=== PATIENT | female | born 1930 | race Native Hawaiian/Other Pacific Islander ===

== ENCOUNTER 2016-10-21 10:28 | Emergency (ER) | payer MEDICARE ==
[2016-10-21 10:28] VITALS: BMI 23.6
[2016-10-21 10:39] VITALS: BP 119/39; PULSE 82; RESP 20; TEMP 98.5; O2SAT 100
--- NOTE | 2016-10-21 11:41 | ED PDOC ---
HPI: General Adult Time Seen by Provider: 10/21/16 11:36 Chief Complaint (Nursing): Lower Extremity Problem/Injury Chief Complaint (Provider): left knee pain History Per: Patient History/Exam Limitations: no limitations Additional Complaint(s): 86yo female comes for evaluation of increased left knee pain for 4 days. Patient reports that 4 days ago she noticed increased pain and swelling to her knee. She denies trauma other than walking excessively to the store. Denies any falls, trauma or twisting injuries. She reports over the last 4 days the swelling has resolved but she still has pain. When pressed she reports that she has had similar pain in her L knee since her knee replacement in 2015. Patient states she had left knee replacement by Dr. Mcneal in February 2016 and has had persistent pain since then. She reports that she has spoken to her orthopedist multiple times since then and was told it was normal post-operative pain and chronic. Reports she's been following with him monthly. Her next appointment with him is next week however she did not want to wait and reports that his office is in an inconvenient location and is expensive to get transportation to, so she chose to come to the ED for evaluation. Denies fever, chills, break in skin or other injury. Past Medical History Reviewed: Historical Data, Nursing Documentation, Vital Signs Vital Signs: Last Vital Signs Temp 98.5 F 10/21/16 10:36 Pulse 82 10/21/16 10:36 Resp 20 10/21/16 10:36 BP 119/39 L 10/21/16 10:36 Pulse Ox 100 10/21/16 13:06 - Medical History PMH: Arthritis, Cardia Arrhythmia, Depression, Fractures (right hip), HTN, Hypercholesterolemia, Osteoporosis Denies: Atrial Fibrillation, Chronic Kidney Disease - Surgical History Surgical History: Endoscopy, Pacemaker - Family History Family History: States: Unknown Family Hx - Living Arrangements Living Arrangements: With Family - Social History Drugs: Denies - Immunization History Hx Tetanus Toxoid Vaccination: No Hx Influenza Vaccination: Yes Hx Pneumococcal Vaccination: No - Home Medications Home Medications: Ambulatory Orders Medication Instructions Recorded Simvastatin 40 mg PO DAILY 02/03/14 Losartan [Cozaar] 50 mg PO DAILY #0 tab 02/05/14 Amlodipine Besylate 5 mg PO DAILY 05/12/14 Gabapentin [Neurontin] 100 mg PO TID 11/10/14 Acetaminophen [Tylenol 325mg tab] 650 mg PO Q4 PRN #0 tab 11/22/14 Dabigatran [Pradaxa] 75 mg PO 02/15/16 Sotalol [Betapace] 40 mg PO BID 02/15/16 Acetaminophen [Tylenol 325mg tab] 650 mg PO Q4 PRN #0 tab 02/24/16 Dabigatran [Pradaxa] 75 mg PO DAILY #0 cap 02/24/16 Docusate [Colace] 100 mg PO BID #0 cap 02/24/16 Ferrous Sulfate 325 mg PO BID #0 tab 02/24/16 Gabapentin [Neurontin] 100 mg PO TID #0 cap 02/24/16 Losartan [Cozaar] 50 mg PO DAILY #0 tab 02/24/16 Multivit,Iron,Min 5/Folic Acid 1 tab PO DAILY #0 tablet 02/24/16 [Strovite Forte Caplet] Sotalol HCl [Betapace] 40 mg PO DAILY #0 tablet 02/24/16 amLODIPine [Norvasc] 5 mg PO DAILY #0 tab 02/24/16 traMADol [Ultram] 100 mg PO Q6 PRN #0 tab 02/24/16 - Allergies Allergies/Adverse Reactions: Allergies Allergy/AdvReac Type Severity Reaction Status Date / Time Iodinated Contrast Media - Allergy fainting Verified 02/21/16 10:09 Oral and iodine dye AdvReac fainting Uncoded 02/13/16 11:05 Review of Systems ROS Statement: Except As Marked, All Systems Reviewed And Found Negative Constitutional: Negative for: Fever, Chills Cardiovascular: Negative for: Chest Pain, Palpitations Respiratory: Negative for: Cough, Shortness of Breath, SOB with Exertion Gastrointestinal: Negative for: Nausea, Vomiting, Abdominal Pain, Diarrhea, Constipation Genitourinary Female: Negative for: Dysuria Musculoskeletal: Positive for: Other (knee pain). Negative for: Neck Pain, Back Pain Neurological: Negative for: Weakness, Numbness, Altered Mental Status, Headache , Dizziness Physical Exam - Reviewed Nursing Documentation Reviewed: Yes Vital Signs Reviewed: Yes - Physical Exam Appears: Positive for: Well, Non-toxic, No Acute Distress Head Exam: Positive for: ATRAUMATIC, NORMAL INSPECTION, NORMOCEPHALIC Extremity: Positive for: Normal ROM, Swelling (scant anterior left knee swelling (patient reports is baseline and improved since )), Other (No break in skin. No warmth. Post surgical scar left knee. Distal pulses intact.). Negative for: Tenderness, Calf Tenderness, Deformity Neurologic/Psych: Positive for: Alert - ECG O2 Sat by Pulse Oximetry: 100 Medical Decision Making Medical Decision Making: Left knee XR Impression from 10/17/16 Status post total knee arthroplasty with joint effusion ; fluid sterility is uncertain. Consider joint aspiration Anterior subcutaneous and anterior infrapatellar soft tissue swelling [address] Mcneal orthopedist. Pain medication ordered- refusing narcotics and requesting tylenol. 1:05PM I Spoke to Dr. Hernandez who reviewed xray from last week. He is aware of her normal vitals. He recommends follow-up in his office, with rest and elevation. Patient offered knee immobilizer which she is refusing. Disposition - Clinical Impression Clinical Impression: Knee pain - Disposition Referrals: Otilio Mcneal III, MD [Staff Provider] - Disposition: Routine/Home Disposition Time: 13:05 Condition: GOOD Additional Instructions: Follow up with your orthopedic surgeon. Return to ED if condition worsens. Motrin for pain. Ice and rest. Instructions: Knee Pain (ED) Additional Comments - Additional Comments Additional Comments: Scribe Attestation Documented by Alverto Brady acting as a scribe for Leslie Sen MD. Provider Attestation: All medical record entries made by the Scribe were at my direction and personally dictated by me. I have reviewed the chart and agree that the record accurately reflects my personal performance of the history, physical exam, medical decision making, and the department course for this patient. I have also personally directed, reviewed, and agree with the discharge instructions and disposition.
[2016-10-21] MEDS ORDERED: Oxycodone/Acetaminophen 5/325 mg Tab PO STA (11:50)
[2016-10-21] MEDS ORDERED: Oxycodone/Acetaminophen 5/325 mg Tab ONE (12:03)
== END 2016-10-21 13:45 | disposition home or self-care (01) ==
LOC: H.ER 10:28
DX: M25.562 Pain in left knee (principal); E78.00 Pure hypercholesterolemia, unspecified; I10 Essential (primary) hypertension; Z79.01 Long term (current) use of anticoagulants; Z95.0 Presence of cardiac pacemaker